=== PATIENT | male | born 1975 | race Two or more races ===

== ENCOUNTER 2022-12-01 02:23 | Inpatient (IN) | payer OTHER, SELFPAY ==
--- NOTE | ~2022-12-01 | XR_ITS ---
EXAMINATION: XR CHEST CLINICAL INFORMATION: Trauma. COMPARISON: None available. TECHNIQUE: 2 views of the chest were obtained. FINDINGS: The cardiomediastinal silhouette is normal. There is no focal lung consolidation or pleural effusion. The bony structures and soft tissues are unremarkable. XR/XR chest 2V IMPRESSION: No active cardiopulmonary disease.
[2022-12-01 02:26] VITALS: BP 127/87; PULSE 92; RESP 18; TEMP 37.1; O2SAT 99; BMI 25.1
[2022-12-01 02:46] LABS: MANUAL DIFF FLAG NO
--- OUTSIDE RECORDS SUMMARY | 2022-12-01 02:46 | XMS_ITS | Continuity of Care Document ---
Author Name Unknown Organization [facility] ter Address [address] [place] [id number]- Care Team Providers Care Vein Pumper Name Role Phone Neva Sesay Primary Care Physician [place] [facility] [place]/03/21 - 06/11/[address] [address] Attending Physician: Alexsander Feldman MD Admitting Physician: Alexsander Feldman MD Allergies, Adverse Reactions, Alerts No Known Allergies Medications klonopin klonopin, Refills 0, Maintenance, 09/30/19 7:59:00 EDT, Supply Start Date: 09/30/19 Status: Ordered Methadone By Mouth, 0 Refills, Maintenance, 05/14/18 10:04:23 EST Start Date: 05/14/18 Status: Ordered MiraLax oral powder for reconstitution = 17 Gm, By Mouth, Daily, dissolve in water before taking, # 255 Gm, 1 Refills, Acute 03/02/22 9:58:00 EST, 03/01/21 9:58:00 EST, REC Powder, [facility] [address], Partial fill upon patient request if the prescription is for a schedule II opioi... Start Date: 03/01/21 Stop Date: 03/02/22 Status: Ordered NuLYTELY with Flavor Packs oral powder for reconstitution 240 mL, By Mouth, Every 10 minutes, # 4,000 mL, 0 Refills, Maintenance, 03/01/21 9:58:00 EST, REC Powder, [facility], Can offer alternative bowel prep if not available, 240 mL By Mouth Every 10 minutes, 167.64, cm, 03/01/21 9:10:00 ES... Start Date: 03/01/21 Status: Ordered Trulicity Pen Subcutaneous Infusion, 0 Refills, Maintenance, 01/01/21 12:47:00 EDT, Partial fill upon patient request if the prescription is for a schedule II opioid drug. Start Date: 01/01/21 Status: Ordered Wellbutrin By Mouth, 0 Refills, Maintenance, 09/30/19 7:59:00 EDT Start Date: 09/30/19 Status: Ordered Zolpidem Daily at bedtime, 0 Refills, Maintenance, 09/30/19 7:59:00 EDT Start Date: 09/30/19 Status: Ordered Problem List Condition Effective Dates Status Health Status Inform ant Acquired trigger finger of r ight middle finger(Confirmed) Active Central sleep apnea(Confirmed) Active Hypoventilation(Confirmed) Active Obese class I(Confirmed) Active Obstructive sleep apnea(Confirmed) Active Social History Social History Type Response Smoking Status Former smoker, quit more than 30 days ago entered on: 05/14/18 Sex
--- OUTSIDE RECORDS SUMMARY | 2022-12-01 02:46 | XMS_ITS | Continuity of Care Document ---
Author Name Unknown Organization [facility] Address [address] [facility], [address]r d Floor, [address] [place] [id number]- Care Team Providers Care Chute Loader Name Role Phone Neva Sesay Primary Care Physician [phone] Encounter [facility] [place] Date(s): 12/17/19 - 01/16/20 [facility] [address] [facility], 3rd Floor, [address] [place] [address]- [facility] Attending Physician: Saravanan Costa Admitting Physician: Admtr, Ar8 Referring Physician: Admtr, Ar8 Allergies, Adverse Reactions, Alerts Substance Reaction Severity Status NKA Active Medications acetaminophen-oxycodone 500 mg-5 mg oral capsule 1 capsule, By Mouth, Every 6 hours, PRN as needed for pain, # 18 capsule, 0 Refills, Maintenance Start Date: 12/07/09 Status: Ordered Crutches 1 pair, # 1 pair, Maintenance, 03/24/10 15:12:31 Start Date: 03/24/10 Status: Ordered Durable Medical Equipment See Instructions, Maintenance, iVAPS with TVa of 8 L/minute with EPAP of 6 and min PS of 4 and max PS of 20 with target patient rate at 16 bpm, 06/07/18 10:35:09 EST, Compound Start Date: 06/07/18 Status: Ordered Flonase 50 mcg/inh nasal spray 1 sprays, Nares, Both, 2 times a day, PRN Nasal Congestion, # 16 Gm, 3 Refills, Maintenance, 10/09/18 18:08:15 EDT, [place], 1 sprays Nares, Both 2 times a day,PRN:Nasal Congestion Start Date: 10/09/18 Status: Ordered klonopin klonopin, Refills 0, Maintenance, 09/30/19 7:59:00 EDT, Supply Start Date: 09/30/19 Status: Ordered Methadone By Mouth, 0 Refills, Maintenance, 05/14/18 10:04:23 EST Start Date: 05/14/18 Status: Ordered Misc Rx Refills 0, Maintenance, 09/30/19 7:59:00 EDT, Supply Start Date: 09/30/19 Status: Ordered oxycodone 5 mg oral tablet 1 tablet = 5 mg, By Mouth, Every 6 hours, PRN for pain, # 10 tablet, 0 Refills, Maintenance, Tablet Start Date: 03/24/10 Status: Ordered oxycodone 5 mg oral tablet 2 tablet = 10 mg, By Mouth, Every 6 hours, PRN Pain, # 24 tablet, 0 Refills, Maintenance, Tablet Start Date: 09/24/09 Status: Ordered Percocet-5/325 325 mg-5 mg oral tablet 1 tablet, By Mouth, Every 4 hours, PRN for pain, # 8 tablet, 0 Refills, Maintenance, Tablet Start Date: 03/24/10 Status: Ordered tylenol tylenol, Refills 0, Maintenance, 09/30/19 8:00:00 EDT, Supply Start Date: 09/30/19 Status: Ordered Wellbutrin By Mouth, 0 Refills, Maintenance, 09/30/19 7:59:00 EDT Start Date: 09/30/19 Status: Ordered Zolpidem Daily at bedtime, 0 Refills, Maintenance, 09/30/19 7:59:00 EDT Start Date: 09/30/19 Status: Ordered Problem List Condition Effective Dates Status Health Status Inform ant Central sleep apnea(Confirmed) Active Hypoventilation(Confirmed) Active Obstructive sleep apnea(Confirmed) Active Social History Social History Type Response Smoking Status Former smoker, quit more than 30 days ago entered on: 05/14/18 Sex
--- OUTSIDE RECORDS SUMMARY | 2022-12-01 02:46 | XMS_ITS | Continuity of Care Document ---
Author Name Unknown Organization [facility] Address [address] [place] [address], 3r d Floor, [address] [place] [address]- Care Team Providers Care Ward Clerk Name Role Phone Neva Sesay Primary Care Physician [phone] Encounter [facility] [place] Date(s): 06/27/19 - 07/04/19 [facility] [address] [facility], 3rd Floor, [address] [place] [address]- [facility] Attending Physician: Zan Peoples Admitting Physician: Zan Peoples Referring Physician: Neva Sesay Allergies, Adverse Reactions, Alerts Substance Reaction Severity [...] Gm, 3 Refills, Maintenance, 10/09/18 18:08:15 EDT, [place], 1 sprays Nares, Both 2 times a day,PRN:Nasal Congestion Start Date: 10/09/18 Status: Ordered Methadone By Mouth, 0 Refills, Maintenance, 05/14/18 10:04:23 EST Start Date: 05/14/18 Status: Ordered oxycodone 5 mg oral tablet [...] Maintenance, Tablet Start Date: 03/24/10 Status: Ordered Problem List Condition Effective Dates Status Health Status Inform ant Central sleep apnea(Confirmed) Active Hypoventilation(Confirmed) Active Obstructive sleep apnea(Confirmed) Active Social History Social History Type Response Smoking Status Former smoker, quit more than 30 days ago entered on: 05/14/18 Sex
--- OUTSIDE RECORDS SUMMARY | 2022-12-01 02:46 | XMS_ITS | Continuity of Care Document ---
Author Name Unknown Organization [facility] ter Address [address] [place] [address]- Care Team Providers Care Medical Data Entry Clerk Name Role Phone Neva Sesay Primary Care Physician Encounter [facility] [place] Date(s): 10/29/19 - 12/04/[address] [address] Attending Physician: Zan Peoples Admitting Physician: Zan Peoples Referring Physician: Zan Peoples Allergies, Adverse Reactions, Alerts Substance Reaction Severity [...] Gm, 3 Refills, Maintenance, 10/09/18 18:08:15 EDT, [place], 1 sprays Nares, Both 2 times a [...]
--- OUTSIDE RECORDS SUMMARY | 2022-12-01 02:46 | XMS_ITS | Continuity of Care Document ---
Author Name Unknown Organization [facility] Address [address] [place] [address]- Care Team Providers Care Obstetrical Tech Name Role Phone Neva Sesay Primary Care Physician [id number] Date(s): 06/18/19 - 06/28/19 [facility] [address] [place] [address]- [facility] Attending Physician: Admtr, Ar8 Admitting Physician: Admtr, Ar8 Referring Physician: Admtr, [...] Gm, 3 Refills, Maintenance, 10/09/18 18:08:15 EDT, [place], 1 sprays Nares, Both 2 times a [...]
--- OUTSIDE RECORDS SUMMARY | 2022-12-01 02:46 | XMS_ITS | Continuity of Care Document ---
Author Name Unknown Organization [facility] Address [address] [place] [address]- Care Team Providers Care Mechanical Oxidizer Name Role Phone Neva Sesay Primary Care Physician [phone] Encounter [facility] [place] Date(s): 03/20/19 - 07/18/19 [facility] [address] [place] [id number]- [facility] Attending Physician: Luisa See NP Admitting Physician: Luisa See NP Allergies, Adverse Reactions, Alerts Substance Reaction Severity [...] Gm, 3 Refills, Maintenance, 10/09/18 18:08:15 EDT, [place], 1 sprays Nares, Both 2 times a [...]
--- OUTSIDE RECORDS SUMMARY | 2022-12-01 02:47 | XMS_ITS | Continuity of Care Document ---
Author Name Unknown Organization [facility] ter Address [address] [place] [id number]- Care Team Providers Care Load Mixer Name Role Phone Neva Sesay Primary Care Physician Encounter [facility] [place] Date(s): 08/17/21 - 08/17/[address] [address]- Discharge Disposition: A-D/C Home Attending Physician: Arnoldo Medina MD Admitting Physician: Arnoldo Medina MD Referring Physician: Not on Staff, Referring MD Allergies, Adverse Reactions, Alerts No Known Allergies Medications ibuprofen 600 mg oral tablet 600 mg, 1, tablet, By Mouth, Every 6 hours, PRN, not to exceed 3200 mg/day with food or milk, # 40 tablet, Refills 0, Tot. Refills 0, Maintenance, for pain, 08/17/21 14:25:00 EDT, Route to Pharmacy Electronically, [id number], Partial fill... Start Date: 08/17/21 Stop Date: 08/27/21 Status: Ordered klonopin klonopin, Refills 0, Maintenance, 09/30/19 7:59:00 EDT, Supply Start Date: 09/30/19 Status: Ordered Methadone By Mouth, 0 Refills, Maintenance, 05/14/18 10:04:23 EST Start Date: 05/14/18 Status: Ordered MiraLax oral powder for reconstitution = 17 Gm, By Mouth, Daily, dissolve in water before taking, # 255 Gm, 1 Refills, Acute 03/02/22 9:58:00 EST, 03/01/21 9:58:00 EST, REC Powder, [facility] [address], Partial fill upon patient request if the prescription is for a schedule II opioi... Start Date: 03/01/21 Stop Date: 03/02/22 Status: Ordered NuLYTELY with Flavor Packs oral powder for reconstitution 240 mL, By Mouth, Every 10 minutes, # 4,000 mL, 0 Refills, Maintenance, 03/01/21 9:58:00 EST, REC Powder, [facility], Can offer alternative bowel prep if not available, 240 mL By Mouth Every 10 minutes, 167.64, cm, 03/01/21 9:10:00 ES... Start Date: 03/01/21 Status: Ordered Trulicity Pen Subcutaneous Infusion, 0 Refills, Maintenance, 01/01/21 12:47:00 EDT, Partial fill upon patient request if the prescription is for a schedule II opioid drug. Start Date: 01/01/21 Status: Ordered Tylenol 325 mg oral capsule 2 capsule = 650 mg, By Mouth, Every 6 hours, PRN as needed for pain, not to exceed 4000 mg/day, # 20 capsule, 0 Refills, Maintenance, 08/17/21 14:25:00 EDT, Capsule, [id number], Partial fill upon patient request if the prescription is for a... Start Date: 08/17/21 Status: Ordered Wellbutrin By Mouth, 0 Refills, [...] class I(Confirmed) Active Obstructive sleep apnea(Confirmed) Active Vital Signs Most recent to oldest [Reference Range]: 1 2 3 Height 168 cm (08/17/21 2:07 PM) 168 cm (08/17/21 11:28 AM) 168 cm (08/17/21 10:05 AM) Weight 86 kg (08/17/21 2:07 PM) 86 kg (08/17/21 11:28 AM) 86 kg (08/17/21 10:05 AM) Oxygen Saturation [94-100 %] 96 % (08/17/21 2:07 PM) 99 % (08/17/21 10:05 AM) 99 % (08/17/21 9:41 AM) Pulse Rate [55-90 bpm] 75 bpm (08/17/21 2:07 PM) 70 bpm (08/17/21 10:05 AM) 86 bpm (08/17/21 9:41 AM) Body Mass Index [18.5-24.99] 30.47 *>HHI* (08/17/21 2:07 PM) 30.47 *>HHI* (08/17/21 10:05 AM) Blood Pressure [90-138/55-84 mm Hg] 106/63mm Hg (08/17/21 2:07 PM) 123/87mm Hg (08/17/21 10:05 AM) Respiratory Rate [16-30 br/min] 18 br/min (08/17/21 2:07 PM) 16 br/min (08/17/21 10:05 AM) Temperature [96.8-100.4 DegF] 97.5 DegF (08/17/21 2:07 PM) 98.7 DegF (08/17/21 10:05 AM) Mode of Delivery (Oxygen) Room air (08/17/21 2:07 PM) Room air (08/17/21 10:05 AM) Room air (08/17/21 9:41 AM) Blood pressure sites Arm, right (08/17/21 2:07 PM) Arm, right (08/17/21 10:05 AM) Temperature Route Oral (08/17/21 2:07 PM) Oral (08/17/21 10:05 AM) Dry Weight 86 kg (08/17/21 2:07 PM) 86 kg (08/17/21 11:28 AM) 86 kg (08/17/21 10:05 AM) Weight Obtained Via Patient/family state d (08/17/21 10:05 AM) Dry Weight Obtained Via Patient/family s tated (08/17/21 10:05 AM) Social History Social History Type Response Smoking Status Former smoker, quit more than 30 days ago entered on: 05/14/18 Sex
--- OUTSIDE RECORDS SUMMARY | 2022-12-01 02:47 | XMS_ITS | Continuity of Care Document ---
Author Name Unknown Organization [facility] Address [address] [place] [id number]- Care Team Providers Care Ranch Hand Name Role Phone Neva Sesay Primary Care Physician [place] [facility] [place] 03[place]/21 [facility] [address] [place] [address]- Attending Physician: Saravanan Costa Admitting Physician: Saravanan Costa Referring Physician: Saravanan Costa Allergies, Adverse Reactions, Alerts Substance Reaction Severity Status NKA Active Medications klonopin klonopin, Refills 0, Maintenance, 09/30/19 7:59:00 EDT, Supply Start Date: 09/30/19 Status: Ordered Methadone By Mouth, 0 Refills, Maintenance, 05/14/18 10:04:23 EST Start Date: 05/14/18 Status: Ordered MiraLax oral powder for reconstitution = 17 Gm, By Mouth, Daily, dissolve in water before taking, # 255 Gm, 1 Refills, Acute 03/02/22 9:58:00 EST, 03/01/21 9:58:00 EST, REC Powder, [facility] [address], Partial fill upon patient request if the prescription is for a schedule II opioi... Start Date: 03/01/21 Stop Date: 03/02/22 Status: Ordered NuLYTELY with Flavor Packs oral powder for reconstitution 240 mL, By Mouth, Every 10 minutes, # 4,000 mL, 0 Refills, Maintenance, 03/01/21 9:58:00 EST, REC Powder, [facility], Can offer alternative bowel prep [...]
[2022-12-01 02:49] LABS: Basophils Percent Auto 0.3 % (0-2); Eosinophils Percent Auto 0.2 % (0-4); Hematocrit 39.6 % (42.0-52.0); Hemoglobin 13.6 g/dl (14.0-18.0); Imm Gran Abs Auto 0.02 X10*3/uL (0.00-0.03); Imm Gran Pct Auto 0.3 % (0.0-0.4); Lymphocytes Absolute Auto 2.1 X10*3/uL (1.2-4.9); Lymphocytes Percent Auto 32.3 % (20-40); Mean Corpuscular HGB Conc 34.3 g/dl (31.0-36.0); Mean Corpuscular Hemoglobin 31.2 pg (27.0-33.0); Mean Corpuscular Volume 90.8 fL (80.0-98.0); Mean Platelet Volume 9.8 fL (9.4-12.4); Neutrophils Absolute Auto 3.3 x10*3/uL (2.0-8.3); Neutrophils Percent Auto 51.9 % (45-73); Platelet Count 257 X10*3/uL (160-400); Red Blood Count 4.36 X10*6/uL (4.60-5.80); Red Cell Distribution Width 12.4 % (11.0-16.0); White Blood Count 6.4 X10*3/uL (4.8-10.8)
[2022-12-01 03:04] LABS: Ethanol < 10 mg/dL
[2022-12-01 03:05] LABS: Alanine Aminotransferase 85 U/L (0-40); Albumin Level 3.9 g/dL (3.5-5.0); Alkaline Phosphatase 172 U/L (39-117); Anion Gap 16 (12-20); Aspartate Amino Transferase 83 U/L (5-37); Bilirubin Total 0.5 mg/dL (0.0-1.0); Blood Urea Nitrogen 24 mg/dL (9-16); Calcium 9.8 mg/dL (8.4-10.2); Carbon Dioxide 22 mmol/L (22-29); Chloride 105 mmol/L (96-108); Creatinine Clr Calc Pharmacy 75.6; Estimated Glomerular Filt Rate > 60; Glucose Random 107 mg/dL (60-115); Potassium 4.5 mmol/L (3.3-5.1); Sodium 138 mmol/L (135-145); Total Protein 7.9 g/dL (6.5-8.0)
[2022-12-01 03:24] LABS: Appearance Urine Clear; Color Urine Dark Yellow; Glucose Urine UA Negative (Negative); Leukocyte Esterase Urine Negative (Negative); Nitrite Urine Negative (Negative); Specific Gravity - Urine >= 1.030 (1.005-1.025); UMIC TRIGGER UA YES; Urine Blood Negative (Negative); Urine Ketones Trace mg/dL (Negative); Urine Protein 30 (1+) mg/dL (Neg-Trace)
[2022-12-01 03:32] LABS: Amphetamine Screen Urine Not Detected (Not Detect); Barbiturates, Urine Not Detected (Not Detect); Benzodiazepines Screen Urine Not Detected (Not Detect); Cannabinoid Screen Urine Not Detected (Not Detect); Cocaine Screen Urine POSITIVE (Not Detect); Fentanyl, urine POSITIVE (Not Detect); Opiate Screen Urine POSITIVE (Not Detect); Phencyclidine Screen Urine Not Detected (Not Detect)
--- NOTE | 2022-12-01 03:38 | ED.PSYCH ---
HPI - Psych General Chief Complaint: Psychiatric Symptoms Stated Complaint: Si thoughts? Time Seen by Provider: 12/01/22 03:18 Source: patient Mode of arrival: ambulatory Limitations: no limitations History of Present Illness HPI Narrative: Patient with history of depression substance abuse use heroin and cocaine right hand carpal tunnel syndrome comes in for increased depression and suicidal ideation. Patient lost his job 3 weeks ago because is pain in the right hand still using heroin and cocaine about 25 dollars a day unable to manage financially lives with his parents feel suicidal by overdosing with drugs, does have psychiatrist and therapist in takes his medication for depression denies alcohol use Related Data Home Medications Medication Instructions Recorded Confirmed bupropion HCl 150 mg 24 hr tablet, 150 mg PO QAM 12/01/22 12/01/22 extended release clonazepam 1 mg tablet 1 mg PO TID 12/01/22 12/01/22 dulaglutide 3 mg/0.5 mL 3 mg subcut QWEEK 12/01/22 12/01/22 subcutaneous pen injector (Trulicity) zolpidem 10 mg tablet 10 mg PO BEDTIME insomnia 12/01/22 12/01/22 Allergies Allergy/AdvReac Type Severity Reaction Status Date / Time No Known Allergies Allergy Verified 12/01/22 02:26 Review of Systems Review of Systems: Yes all other systems are reviewed and are negative PMFSH Social History Social History Advance Directives: No Advance Directives Information Provided: No Physical Exam Vital Signs: Vital Signs: Last Vital Signs Temp 98.7 F 12/01/22 02:26 Pulse 92 12/01/22 02:26 Resp 18 12/01/22 02:26 BP 127/87 12/01/22 02:26 Pulse Ox 99 12/01/22 02:26 O2 Del Method Room Air 12/01/22 02:26 BMI result Body Mass Index 25.1 Appearance: Alert. Oriented X3. No acute distress. Eyes: PERRLA, No Nystagmus ENT: Pharynx normal. Oral Mucosa moist Neck: Normal inspection. Neck supple. CVS: Normal heart rate and rhythm. Pulses normal. Respiratory: No respiratory distress. Equal air entry bilateral, no wheezing/rales/rhonchi Abdomen: Soft and nontender. Bowel sounds are present, no mass palpable, no CVA tenderness Skin: Skin warm and dry. Normal skin color. Normal skin turgor. Extremities: No lower extremity edema. No calf tenderness right hand Tinel sign positive psych: Feel depressed no suicidal ideation at this time no hallucination or delusion Neuro: Oriented X 3. No motor deficit. No sensory deficit.No cerebellar signs , cranial nerves II-XII intact Medical Decision Making Medical Decision Making [facility] Narrative: Patient with polysubstance abuse with depression and SI will get care team involved for evaluation, medically cleared Differential Diagnosis Differential Diagnoses: The differential diagnosis associated with the presentation includes Major depression/substance abuse/mood disorder Lab Data [facility] Lab Attestation statement: I reviewed the patient's lab results. 12/01/22 02:42 12/01/22 02:42 Labs: Lab Results 12/01/22 12/01/22 12/01/22 Range/Units 02:42 02:42 02:42 WBC 6.4 (4.8-10.8) X10*3/uL RBC 4.36 L (4.60-5.80) X10*6/uL Hgb 13.6 L (14.0-18.0) g/dl Hct 39.6 L (42.0-52.0) % MCV 90.8 (80.0-98.0) fL MCH 31.2 (27.0-33.0) pg MCHC 34.3 (31.0-36.0) g/dl RDW 12.4 (11.0-16.0) % Plt Count 257 (160-400) X10*3/uL MPV 9.8 (9.4-12.4) fL Immature Gran % (Auto) 0.3 (0.0-0.4) % Neut % (Auto) 51.9 (45-73) % Lymph % (Auto) 32.3 (20-40) % [place] % (Auto) 15.0 H (2-11) % Eos % (Auto) 0.2 (0-4) % Baso % (Auto) 0.3 (0-2) % Lymph # (Auto) 2.1 (1.2-4.9) X10*3/uL [place] # (Auto) 1.0 (0.1-1.2) X10*3/uL Eos # (Auto) 0.0 (0.0-0.4) X10*3/uL Baso # (Auto) 0.0 (0.0-0.2) X10*3/uL Abs Immat Gran (auto) 0.02 (0.00-0.03) X10*3/uL Absolute Neuts (auto) 3.3 (2.0-8.3) x10*3/uL Absolute Nucleated RBC 0.000 (0.0-0.012) X10*3/uL Nucleated RBC % (auto) 0.0 (0.0-0.2) /100WBC Sodium 138 (135-145) mmol/L Potassium 4.5 (3.3-5.1) mmol/L Chloride 105 (96-108) mmol/L Carbon Dioxide 22 (22-29) mmol/L Anion Gap 16 (12-20) BUN 24 H (9-16) mg/dL Creatinine 1.14 (0.5-1.4) mg/dL Estim Creat Clear Calc 75.6 Estimated GFR > 60 Random Glucose 107 (60-115) mg/dL Calcium 9.8 (8.4-10.2) mg/dL Total Bilirubin 0.5 (0.0-1.0) mg/dL AST 83 H (5-37) U/L ALT 85 H (0-40) U/L Alkaline Phosphatase 172 H (39-117) U/L Total Protein 7.9 (6.5-8.0) g/dL Albumin 3.9 (3.5-5.0) g/dL Urine Color Urine Appearance Urine pH (5.0-9.0) Ur Specific [place] (1.005-1.025) Urine Protein (Neg-Trace) mg/dL Urine Glucose (UA) (Negative) mg/dL Urine Ketones (Negative) mg/dL Urine Blood (Negative) Urine Nitrite (Negative) Ur Leukocyte Esterase (Negative) Urine RBC (0-2) /HPF Urine WBC (0-5) /HPF Ur Squamous Epith Cells (0-2) /HPF Urine Bacteria (None Seen) Hyaline Casts (0-2) /LPF Urine Opiates Screen (Not Detect) Urine Fentanyl Screen (Not Detect) Ur Barbiturates Screen (Not Detect) Ur Phencyclidine Scrn (Not Detect) Ur Amphetamines Screen (Not Detect) U Benzodiazepines Scrn (Not Detect) Urine Cocaine Screen (Not Detect) U Marijuana (THC) Screen (Not Detect) Ethyl Alcohol < 10 mg/dL COVID-19 ([facility]) (Negative) COVID-19 Clin Com 12/01/22 12/01/22 12/01/22 Range/Units 03:01 03:01 03:01 WBC (4.8-10.8) X10*3/uL RBC (4.60-5.80) X10*6/uL Hgb (14.0-18.0) g/dl Hct (42.0-52.0) % MCV (80.0-98.0) fL MCH (27.0-33.0) pg MCHC (31.0-36.0) g/dl RDW (11.0-16.0) % Plt Count (160-400) X10*3/uL MPV (9.4-12.4) fL Immature Gran % (Auto) (0.0-0.4) % Neut % (Auto) (45-73) % Lymph % (Auto) (20-40) % [place] % (Auto) (2-11) % Eos % (Auto) (0-4) % Baso % (Auto) (0-2) % Lymph # (Auto) (1.2-4.9) X10*3/uL [place] # (Auto) (0.1-1.2) X10*3/uL Eos # (Auto) (0.0-0.4) X10*3/uL Baso # (Auto) (0.0-0.2) X10*3/uL Abs Immat Gran (auto) (0.00-0.03) X10*3/uL Absolute Neuts (auto) (2.0-8.3) x10*3/uL Absolute Nucleated RBC (0.0-0.012) X10*3/uL Nucleated RBC % (auto) (0.0-0.2) /100WBC Sodium (135-145) mmol/L Potassium (3.3-5.1) mmol/L Chloride (96-108) mmol/L Carbon Dioxide (22-29) mmol/L Anion Gap (12-20) BUN (9-16) mg/dL Creatinine (0.5-1.4) mg/dL Estim Creat Clear Calc Estimated GFR Random Glucose (60-115) mg/dL Calcium (8.4-10.2) mg/dL Total Bilirubin (0.0-1.0) mg/dL AST (5-37) U/L ALT (0-40) U/L Alkaline Phosphatase (39-117) U/L Total Protein (6.5-8.0) g/dL Albumin (3.5-5.0) g/dL Urine Color Dark Yellow Urine Appearance Clear Urine pH 5.0 (5.0-9.0) Ur Specific [place] >= 1.030 H (1.005-1.025) Urine Protein 30 (1+) H (Neg-Trace) mg/dL Urine Glucose (UA) Negative (Negative) mg/dL Urine Ketones Trace (Negative) mg/dL Urine Blood Negative (Negative) Urine Nitrite Negative (Negative) Ur Leukocyte Esterase Negative (Negative) Urine RBC 3-5 H (0-2) /HPF Urine WBC 0-5 (0-5) /HPF Ur Squamous Epith Cells 3-5 (0-2) /HPF Urine Bacteria None Seen (None Seen) Hyaline Casts 6-10 (0-2) /LPF Urine Opiates Screen POSITIVE H (Not Detect) Urine Fentanyl Screen POSITIVE H (Not Detect) Ur Barbiturates Screen Not Detected (Not Detect) Ur Phencyclidine Scrn Not Detected (Not Detect) Ur Amphetamines Screen Not Detected (Not Detect) U Benzodiazepines Scrn Not Detected (Not Detect) Urine Cocaine Screen POSITIVE H (Not Detect) U Marijuana (THC) Screen Not Detected (Not Detect) Ethyl Alcohol mg/dL COVID-19 ([facility]) Negative (Negative) COVID-19 Clin Com See Note Discharge Plan Discharge Clinical Impression: Depression, Suicidal ideation, Polysubstance abuse Patient Disposition: Still a Patient Prescriptions: No Action clonazepam 1 mg tablet 1 mg PO TID zolpidem 10 mg tablet 10 mg PO BEDTIME bupropion HCl 150 mg tablet extended release 24 hr 150 mg PO QAM Trulicity 3 mg/0.5 mL pen injector 3 mg subcut QWEEK Interventions: [place]-Suicide Risk Severity Scale Last Done: 12/01/22 02:52
[2022-12-01 03:40] LABS: Bacteria Urine None Seen (None Seen); WBC Urine 0-5 /HPF (0-5)
[2022-12-01 03:58] LABS: COVID-19 Test Negative (Negative); IDNOW Serial# 08D9AD1C
--- NOTE | 2022-12-01 06:02 | PC.NURSE ---
Patient slept through the night, no distress observed/reported, behavior non concerning, med rec completed/pending provider's approval, labs completed/resulted, care consult ordered/pending evaluation, VSS, will continue to monitor.
[2022-12-01] MEDS: clonazePAM 1 MG TABLET PO ×3 (08:36→20:45)
[2022-12-01] MEDS: buPROPion HCl XL 150 MG TAB.ER.24H PO (08:36)
--- NOTE | 2022-12-01 11:12 | ECG_ITS ---
Test Reason : ESPARZA + COCAINE Blood Pressure : / mmHG Vent. Rate : 056 BPM Atrial Rate : 056 BPM P-R Int : 158 ms QRS Dur : 084 ms QT Int : 424 ms P-R-T Axes : 015 045 048 degrees QTc Int : 409 ms Sinus bradycardia Otherwise normal ECG No previous ECGs available Referred By: Dylon Acosta Electronically Signed By:LONNIE PUCKETT
--- NOTE | 2022-12-01 13:07 | PC.NURSE ---
pt slept most of morning, met with admissions to sign CV. EKG pending
[2022-12-01 13:41] VITALS: BP 119/80; PULSE 66; RESP 16; TEMP 36; O2SAT 99
[2022-12-01 17:47] VITALS: BMI 24.2
[2022-12-01 17:50] VITALS: BP 112/79; PULSE 68; RESP 16; TEMP 36.7; O2SAT 98
[2022-12-01 18:00] VITALS: BP 119/80; PULSE 68; PULSE 81; RESP 16; TEMP 36.3; O2SAT 99
--- NOTE | 2022-12-01 19:02 | PC.ADMIT ---
Martin is a 47 y/o partnered male, who is [place] speaking, but understands some [place] Islander. Patient transferred to unit via w/c from ER POD today at 1740 with out issues. Per Care Team referral, Patient was admitted to ER after failed suicide attempt via overdose. Patient reported had experiencing worsening depression and anxiety, SI,HI, and substance use. Patient has h/o of substance use and EMILY with no prior attempts before yesterday's. Patient has not been medication adherent. Patient reports intense thoughts of hurting others, stating that he has had thoughts of setting the house on fire. Patient cooperated with admission process and wan support specialist present. Patient alert 0x4, dressed appropriately with good eye contact. Patient's belongings brought up from Unit, except for box knife and pepper spray, which was locked in safe by security. Martin signed a CV and was placed on 15 minute checks for safety. He reported he has DM, which he was using Trulicity Sub q weekly. per Patient last used on 11/22/22. Patient has been in physical control since coming to ER. No behavior issues or restraints . Per patient, been incarcerated x7 times for car theft, but no current charges. Patient eating well, but reported tooth pain left lower rear tooth has cavity. otherwise, teeth are good with no dentures. Patient reports he has CPap at home for his sleep apnea. He has no SoB or apparent respiratory problems. He declined nicotine replacement, but reports he is former smoker. Patient's skin is warm. Patient cooperated with skin check. He is able to compete all his ADL's independently and ambulates ad rosibel with a steady gait. Per patient, I use a cane at home, but can walk with out it. Per patient, I used 25.00 of cocaine and heroin per day prior to coming here. Patient reported mild anxiety of 2/10 and depression of 2/10 at this time denies SI/HI/AV/VH. Dr Fernández aware of patient status and admission orders obtained. Patient orientated to unit and unit routines by staff and voiced no concerns.
[2022-12-01] MEDS: Zolpidem Tartrate 5 MG TABLET PO (20:46)
[2022-12-01] MEDS: Acetaminophen 325 MG TABLET 650 MG PO (20:50)
[2022-12-02 08:00] VITALS: PULSE 77
[2022-12-02 08:15] VITALS: BP 103/69; PULSE 77; RESP 18; TEMP 36.6; O2SAT 97
[2022-12-02] MEDS: buPROPion HCl XL 150 MG TAB.ER.24H PO (09:01)
[2022-12-02] MEDS: clonazePAM 1 MG TABLET PO (09:01)
[2022-12-02] MEDS: Nicotine Polacrilex 2 MG GUM 4 MG BUCCAL (09:03)
[2022-12-02 09:18] LABS: Estimated Average Glucose 117 mg/dL; Hemoglobin A1c % 5.7 % (<6.0)
[2022-12-02] MEDS: Nicotine 21 MG PATCH.TD24 TRANSDERMA (09:22)
[2022-12-02 10:36] LABS: Alanine Aminotransferase 114 U/L (0-40); Albumin Level 3.9 g/dL (3.5-5.0); Alkaline Phosphatase 184 U/L (39-117); Anion Gap 16 (12-20); Aspartate Amino Transferase 147 U/L (5-37); Bilirubin Total 0.6 mg/dL (0.0-1.0); Blood Urea Nitrogen 19 mg/dL (9-16); Calcium 10.2 mg/dL (8.4-10.2); Carbon Dioxide 24 mmol/L (22-29); Chloride 103 mmol/L (96-108); Cholesterol 178 mg/dL (<200); Creatinine Clr Calc Pharmacy 109.2; Estimated Glomerular Filt Rate > 60; Glucose Fasting 82 mg/dL (60-99); HDL Cholesterol 68 mg/dL (>40); LDL Cholesterol Calculated 99 mg/dL (<100); Potassium 5.3 mmol/L (3.3-5.1); Sodium 138 mmol/L (135-145); Total Protein 7.9 g/dL (6.5-8.0); Triglycerides 59 mg/dL (<150)
[2022-12-02 10:44] LABS: Thyroid Stimulating Hormone 0.32 uIU/mL (0.32-4.0)
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
[2022-12-02 11:01] LABS: Folate 13.5 ng/mL (> or = 4.0); Vitamin B12 612 pg/mL (200-900)
== END 2022-12-02 11:45 | disposition home or self-care (01) | DRG 754 ==
LOC: HO.ED 04:20 → HO.PADLT16 17:14
PROVIDERS: Admitting Provider Psychiatry & Neurology Psychiatry; Emergency Provider Internal Medicine; PCP Physician Assistant; Visit Provider Psychiatry & Neurology Psychiatry
DX: F32.A Depression, unspecified (principal); E11.9 Type 2 diabetes mellitus without complications; Z76.5 Malingerer [conscious simulation]; F12.10 Cannabis abuse, uncomplicated; F17.290 Nicotine dependence, other tobacco product, uncomplicated; Z71.6 Tobacco abuse counseling; Z62.810 Personal history of physical and sexual abuse in childhood; F14.10 Cocaine abuse, uncomplicated; F19.10 Other psychoactive substance abuse, uncomplicated; Z20.822 Contact with and (suspected) exposure to COVID-19; Z79.85 Long-term (current) use of injectable non-insulin antidiabetic drugs; Z87.891 Personal history of nicotine dependence
CPT/HCPCS: 36415; 71046; 80053; 80061; 80307; 81001; 82607; 82746; 83036; 84439; 84443; 85025; 87635; 93005; 99285; S9485

== ENCOUNTER → 2022-12-01 17:07 | Outpatient (BNV) | payer OTHER, SELFPAY | PROVIDERS: Admitting Provider Psychiatry & Neurology Psychiatry; Emergency Provider Internal Medicine; PCP Physician Assistant; Visit Provider Psychiatry & Neurology Psychiatry | DX: F11.90 Opioid use, unspecified, uncomplicated (principal); F14.10 Cocaine abuse, uncomplicated; F17.200 Nicotine dependence, unspecified, uncomplicated; F12.90 Cannabis use, unspecified, uncomplicated; Z76.5 Malingerer [conscious simulation] | CPT/HCPCS: 99233 ==

== ENCOUNTER 2023-02-07 10:58 | Emergency (ER) | payer MEDICAID, SELFPAY ==
--- NOTE | ~2023-02-07 | XR_ITS ---
EXAMINATION: XR ANKLE, RIGHT XR FOOT, RIGHT CLINICAL INFORMATION: Right ankle and foot pain. COMPARISON: None TECHNIQUE: AP, lateral, and mortise views of the right ankle and AP, lateral, and oblique views of the right foot. FINDINGS: RIGHT ANKLE: No fracture. Alignment is anatomic. Ankle mortise is symmetric. Joint spaces are maintained. No ankle joint effusion. Mild soft tissue swelling at the ankle and hindfoot. RIGHT FOOT: No fracture. Bipartite os peroneum. Alignment is anatomic. No erosions. Joint spaces are maintained. Small enthesopathic spur is present at the plantar fascial origin on the calcaneus. Mild soft tissue swelling in the hindfoot medially. XR/XR ankle RT min 3V IMPRESSION: 1. No acute fracture or malalignment in the right ankle and foot. 2. Mild soft tissue swelling at the ankle and hindfoot.
--- NOTE | ~2023-02-07 | XR_ITS ---
EXAMINATION: XR ANKLE, RIGHT XR FOOT, RIGHT CLINICAL INFORMATION: Right ankle and foot pain. COMPARISON: None TECHNIQUE: AP, lateral, and mortise views of the right ankle and AP, lateral, and oblique views of the right foot. FINDINGS: RIGHT ANKLE: No fracture. Alignment is anatomic. Ankle mortise is symmetric. Joint spaces are maintained. No ankle joint effusion. Mild soft tissue swelling at the ankle and hindfoot. RIGHT FOOT: No fracture. Bipartite os peroneum. Alignment is anatomic. No erosions. Joint spaces are maintained. Small enthesopathic spur is present at the plantar fascial origin on the calcaneus. Mild soft tissue swelling in the hindfoot medially. XR/XR foot RT min 3V IMPRESSION: 1. No acute fracture or malalignment in the right ankle and foot. 2. Mild soft tissue swelling at the ankle and hindfoot.
--- NOTE | 2023-02-07 11:40 | ED.GENADULT ---
HPI - General Adult General Chief complaint: Skin/Abscess/Foreign Body Stated complaint: Needs IV antibiotic Time Seen by Provider: 02/07/23 12:35 Source: patient and RN notes reviewed Mode of arrival: ambulatory Limitations: no limitations History of Present Illness HPI narrative: This is a [id number]-male, hx of substance abuse, presenting to the emergency department with complaints of ? Abscess on left arm, and right foot pain. Patient reports that he is an IV drug user and states that he has injected into his left arm. He has noticed increased swelling to the areas in he injected. Patient also reports that he has had pain in his right ankle and right foot for the last 2 weeks. He states that he accidentally twisted his right ankle and foot 2 weeks ago and has had pain since. Has been able to walk on his foot without difficulty. Patient was seen at a clinic yesterday and was placed on doxycycline and Keflex. Relieving factors: none Exacerbating factors: none Associated symptoms: denies other symptoms Treatments prior to arrival: none Related Data Home Medications Medication Instructions Recorded Confirmed bupropion HCl 150 mg 24 hr tablet, 150 mg PO QAM 12/01/22 12/01/22 extended release dulaglutide 3 mg/0.5 mL 3 mg subcut QWEEK 12/01/22 12/01/22 [facility] Previous Rx's Medication Instructions Recorded cephalexin 250 mg capsule 250 mg PO QID 7 days #28 caps 02/07/23 doxycycline hyclate 100 mg capsule 100 mg PO BID 7 days #14 caps 02/07/23 ibuprofen 600 mg tablet 600 mg PO Q6H PRN pain #30 tabs 02/07/23 Allergies Allergy/AdvReac Type Severity Reaction Status Date / Time No Known Allergies Allergy Verified 02/07/23 11:43 [No Known Allergies*] Review of Systems Review of Systems: Yes all other systems are reviewed and are negative Constitutional: Constitutional: Reports as per [facility] Past Medical History Attestation statement: The following information was validated with the patient. Medical History Depression Social History Social History Household Members: Significant Other and Other Household Members Other:: Greg León Housing: Apartment Do you presently have visiting nurse or other home services: No Patient Tobacco Use Status: Former Tobacco user Tobacco use type: Cigarette Smoked in Last 30 Days: No e-Cigarette/Vaping Use: Former Use Second Hand Smoke Exposure: No Use of substances other than those prescribed or required for medical reasons: No Substance Use Type: Crack/Cocaine, Heroin, Marijuana and Caffiene Advance Directives: No Advance Directives Information Provided: Yes service: No Sexual orientation: Lesbian/Lamb/Homosexual Physical Exam ED Vital Signs: Vital Signs - 24 hr 02/07/23 11:41 02/07/23 17:16 Temperature 96.9 F Pulse Rate 60 75 Respiratory Rate 18 18 Blood Pressure 103/47 L 113/73 Pulse Oximetry 100 100 Oxygen Delivery Method Room Air Room Air BMI result Body Mass Index 25.1 Const General: cooperative, comfortable and no acute distress Orientation/consciousness: patient oriented x3 Limitations: no limitations HENMT Head: Yes normal to inspection, Yes normocephalic and Yes atraumatic Ears: hearing grossly normal bilaterally General nose exam: Normal external nose present Face and sinus: Yes normal facial exam Mouth: Normal oral and palatal mucosa present, oropharynx normal and moist mucous membranes Throat: Yes posterior oropharynx normal Eyes General: appearance normal, both eyes and all related structures Eyelids: Yes eyelids normal Conjunctivae: conjunctivae normal Sclerae: sclerae normal Pupils: Equal, round and reactive pupils present EOM: EOMs intact bilaterally Neck Neck: Yes normal visual inspection, Yes full ROM and Yes no lymphadenopathy Lymphatic: no lymphadenopathy noted Chest Chest palpation & inspection: normal inspection of the chest Resp Effort & Inspection: normal respiratory effort and able to speak in complete sentences Auscultation: clear to auscultation bilaterally, no crackles, no rales, no rhonchi and no wheezes Cardio Rate: regular rate Rhythm: regular rhythm Heart sounds: S1 normal heart sound present and S2 normal heart sound present GI Inspection: Yes normal to inspection Skin General skin exam: no rashes or lesions noted Trauma: no lacerations or abrasions Wounds: no wounds Neuro General: patient oriented x3 and moves all extremities Cranial nerves: Yes Equal, round and reactive pupils present Extrem Other: Left antecubital fossa with 2cm hardened mobile mass with no surrounding erythema or edema. left posterior forearm with 3cm minimal fluctuance area of erythema and warmth. no profound erythema or warmth noted surrounding region, mildly TTP. Full ROM of the shoulder Right ankle: no medial or malleloli TTP, diffuse edema noted, no erythema. Able to dorsi and plantar flex however limited secondary to pain. DP pulse 2+. General: Yes normal to inspection Right upper extremity: normal to inspection Left upper extremity: normal to inspection Right lower extremity: normal to inspection Left lower extremity: normal to inspection Course Course Course Narrative: RME performed by Rody Ridley PA-C. Patient is a 48 year old assigned male at presenting to the emergency department with a possible abscess on his left upper extremity and complaining of generalized right shoulder pain. Patient placed back in the waiting room pending room availability. Medical Decision Making Medical Decision Making MDM Narrative: 48 y/o M presenting to the ER with complaiants of abscess on left arm and right foot and ankle pain after inversion incident 2 weeks ago. Hx of IVDA, left arm with cellulitic area, would benefit from doxy and keflex. Pt was seen at another medical office yesterday and started these medications. Advised to continue taking these. Right ankle and foot xrays revealing no acute fracture. Pt given chuy wrap and return precautions. Pt stable for d/c. Differential Diagnosis Differential Diagnoses: The differential diagnosis associated with the presentation includes cellulitis, abscess, sprain, strain, fracture Radiology Impression Discussion of test interpretation with radiology: I have reviewed the radiologist's reading. Radiologist Impression: COMPARISON: None TECHNIQUE: AP, lateral, and mortise views of the right ankle and AP, lateral, and oblique views of the right foot. FINDINGS: RIGHT ANKLE: No fracture. Alignment is anatomic. Ankle mortise is symmetric. Joint spaces are maintained. No ankle joint effusion. Mild soft tissue swelling at the ankle and hindfoot. RIGHT FOOT: No fracture. Bipartite os peroneum. Alignment is anatomic. No erosions. Joint spaces are maintained. Small enthesopathic spur is present at the plantar fascial origin on the calcaneus. Mild soft tissue swelling in the hindfoot medially. XR/XR foot RT min 3V IMPRESSION: 1. No acute fracture or malalignment in the right ankle and foot. 2. Mild soft tissue swelling at the ankle and hindfoot. Discharge Plan Discharge Clinical Impression: Cellulitis, Ankle sprain Patient Disposition: Home, Self-Care Instructions: Cellulitis (ED), Warm Compress or Soak (ED) Additional Instructions: You have a developing abscess on the left arm. Please apply warm compresses to the area. Take prescribed antibiotics as directed. (You had these filled yesterday, continue taking these!) Finish the entire course even if your feeling better. Your x-rays of your right ankle and foot did not show any broken bones. Please use Chuy wrap, ice and elevate the area. You may take ibuprofen or Tylenol as needed for pain. If any new or worsening symptoms occur including but not limited to fevers, chills, worsening redness, swelling, please return for re-evaluation. Prescriptions: New cephalexin 250 mg capsule 250 mg PO QID 7 Days Qty: 28 0RF doxycycline hyclate 100 mg capsule 100 mg PO BID 7 Days Qty: 14 0RF ibuprofen 600 mg tablet 600 mg PO Q6H PRN (Reason: pain) Qty: 30 0RF No Action bupropion HCl 150 mg tablet extended release 24 hr 150 mg PO QAM Trulicity 3 mg/0.5 mL pen injector 3 mg subcut QWEEK Interventions: ED Discharge Assessment Last Done: 02/07/23 17:18 Discharge Date/Time: 02/07/23 17:20
[2023-02-07 11:41] VITALS: BP 103/47; PULSE 60; RESP 18; TEMP 36.1; O2SAT 100; BMI 25.1
[2023-02-07 17:16] VITALS: BP 113/73; PULSE 75; RESP 18; O2SAT 100
== END 2023-02-07 17:20 | disposition home or self-care (01) ==
PROVIDERS: Emergency Provider Student in an Organized Health Care Education/Training Program
DX: L03.114 Cellulitis of left upper limb (principal); F19.10 Other psychoactive substance abuse, uncomplicated; S93.401A Sprain of unspecified ligament of right ankle, initial encounter; X50.1XXA Overexertion from prolonged static or awkward postures, initial encounter; Y93.9 Activity, unspecified; Y92.9 Unspecified place or not applicable; Y99.9 Unspecified external cause status; F14.10 Cocaine abuse, uncomplicated; Z87.891 Personal history of nicotine dependence
CPT/HCPCS: 73610; 73630; 99283; 99284

== ENCOUNTER 2023-06-29 14:33 | Outpatient (REF) | payer MEDICAID, SELFPAY ==
[2023-06-29 16:17] LABS: MANUAL DIFF FLAG NO
[2023-06-29 16:28] LABS: Basophils Percent Auto 0.5 % (0-2); Hematocrit 40.2 % (42.0-52.0); Hemoglobin 13.3 g/dl (14.0-18.0); Imm Gran Abs Auto 0.02 X10*3/uL (0.00-0.03); Imm Gran Pct Auto 0.5 % (0.0-0.4); Lymphocytes Absolute Auto 1.3 X10*3/uL (1.2-4.9); Lymphocytes Percent Auto 33.3 % (20-40); Mean Corpuscular HGB Conc 33.1 g/dl (31.0-36.0); Mean Corpuscular Hemoglobin 30.2 pg (27.0-33.0); Mean Corpuscular Volume 91.2 fL (80.0-98.0); Mean Platelet Volume 9.1 fL (9.4-12.4); Monocytes Absolute Auto 0.5 X10*3/uL (0.1-1.2); Monocytes Percent Auto 13.1 % (2-11); Neutrophils Percent Auto 51.6 % (45-73); Platelet Count 243 X10*3/uL (160-400); Red Blood Count 4.41 X10*6/uL (4.60-5.80); Red Cell Distribution Width 12.3 % (11.0-16.0); White Blood Count 3.8 X10*3/uL (4.8-10.8)
[2023-06-29 16:38] LABS: Estimated Average Glucose 126 mg/dL
[2023-06-29 16:39] LABS: Alanine Aminotransferase 41 U/L (0-40); Albumin Level 3.1 g/dL (3.5-5.0); Alkaline Phosphatase 218 U/L (39-117); Anion Gap 10 (12-20); Aspartate Amino Transferase 50 U/L (5-37); Bilirubin Total 0.3 mg/dL (0.0-1.0); Blood Urea Nitrogen 17 mg/dL (9-16); Carbon Dioxide 32 mmol/L (22-29); Chloride 103 mmol/L (96-108); Estimated Glomerular Filt Rate > 60; Glucose Random 107 mg/dL (60-115); Potassium 4.6 mmol/L (3.3-5.1); Sodium 140 mmol/L (135-145); Total Protein 7.2 g/dL (6.5-8.0)
[2023-06-30 04:23] LABS: HIV AB/AG Nonreactive (Nonreactive); HIV Num 1 0.04 S/CO (0.00-0.99); ~HepC Num1 14.48 S/CO (0.00-0.79); ~Hepatitis C Antibody Reactive (Nonreactive)
[2023-07-01 18:54] LABS: HCV Log PCR 6.27 Log IU/mL (NOT DETECTED); HepC Viral Load 1880000 IU/mL (NOT DETECTED)
== END 2023-06-29 14:34 | disposition home or self-care (01) ==
LOC: HO.HHCL 14:33
PROVIDERS: Visit Provider General Practice
DX: Z11.4 Encounter for screening for human immunodeficiency virus [HIV] (principal); B18.2 Chronic viral hepatitis C; E11.9 Type 2 diabetes mellitus without complications
CPT/HCPCS: 36415; 80053; 83036; 85025; 86803; 87389; 87522

== ENCOUNTER 2023-07-04 09:54 | Outpatient (REF) | payer MEDICAID, SELFPAY ==
--- NOTE | ~2023-07-04 | US_ITS ---
EXAMINATION: US ABDOMEN COMPLETE CLINICAL INFORMATION: Hepatitis C treated in 2019. Assess for cirrhosis, HCC, splenomegaly. COMPARISON: None available. TECHNIQUE: Real-time imaging of the abdominal viscera. Technically difficult study secondary to bowel gas. FINDINGS: PANCREAS: The pancreatic body and tail are obscured secondary to shadowing from overlying bowel gas. The pancreatic head is within normal limits. ABDOMINAL AORTA: Visualized portions are normal. INFERIOR VENA CAVA: Visualized portions are normal. LIVER: Liver is normal in size, echogenicity and morphology. Mild intrahepatic biliary ductal dilatation. GALLBLADDER: Mild diffuse gallbladder wall thickening with intramural edema. Internal echogenic bile. No shadowing stones. No significant pericholecystic free fluid. Negative Davies's sign. COMMON BILE DUCT: Dilated measuring 1 cm in diameter. RIGHT KIDNEY: Normal. No hydronephrosis. No renal calculi or focal parenchymal lesions. The kidney measures 10.1 cm in maximum dimension. LEFT KIDNEY: Normal. No hydronephrosis. No renal calculi or focal parenchymal lesions. The kidney measures 9.9 cm in maximum dimension. SPLEEN: The spleen measures 13.1 cm in maximum dimension. Engorged vasculature at the splenic hilum. FREE FLUID: None. US/US abdomen complete IMPRESSION: 1. The common bile duct is dilated and there is mild intrahepatic biliary ductal dilatation. Recommend correlation with liver/biliary function tests and further evaluation with MRCP. 2. Mild diffuse gallbladder wall thickening with intramural edema. This is a nonspecific finding that could be present in several etiologies including cholecystitis, secondary thickening in the context of hepatocellular disease and ascites, among others. Recommend clinical correlation. 3. Incompletely characterize engorged vasculature in the splenic hilum, potentially associated with varices. This could be further characterize at the moment of reevaluation of the biliary tree. The report will be called to the ordering clinician by a [facility] Specialist.
== END 2023-07-04 09:55 | disposition home or self-care (01) ==
LOC: HO.HMGCX 09:54
PROVIDERS: Visit Provider General Practice
DX: B18.2 Chronic viral hepatitis C (principal)
CPT/HCPCS: 76700

== ENCOUNTER 2023-08-09 08:42 | Outpatient (REF) | payer MEDICAID, SELFPAY ==
--- NOTE | ~2023-08-09 | MR_ITS ---
EXAMINATION: MR ABDOMEN WITHOUT CONTRAST MR CHOLANGIOPANCREATOGRAPHY CLINICAL INFORMATION: Hepatitis C treated in 2019, dilated common bile duct COMPARISON: Ultrasound examination of the abdomen on 07/06/2023 TECHNIQUE: Examination was performed in a high field strength MRI scanner. Multiplanar multisequence MR imaging of the abdomen was performed without IV contrast enhancement. MR cholangiopancreatography was performed with heavily T2 weighted sequences. 3-dimensional reconstruction of image data was performed. This was performed under concurrent direct supervision and monitoring by radiologist. Maximum intensity projection images were constructed. FINDINGS: MR CHOLANGIOPANCREATOGRAPHY: Normal gallbladder without filling defects. Cystic duct is unremarkable. Bilateral intra hepatic bile ducts, common hepatic duct and common bile duct are dilated in size without filling defects. Common bile duct is dilated up to 0.8 cm in diameter. Pancreatic duct is diffusely dilated, measuring up to 0.5 cm in diameter in the pancreatic body, tapers to 0.4 cm in pancreatic uncinate process. LIVER: The liver shows no focal lesion. PANCREAS: No focal pancreatic lesion with abnormal signal can be seen. SPLEEN: Spleen is normal in size without focal lesion. ADRENAL: Bilateral adrenal glands are normal in shape and size. KIDNEYS: Bilateral kidneys are normal in size without focal lesion. MR/MR MRCP IMPRESSION: 1. Dilated intrahepatic bile ducts, common hepatic duct and common bile duct without filling defects. 2. Dilated pancreatic duct without focal lesion. 3. Findings could be due to duodenal papillary obstruction or stenosis or sphincter of Oddi dyskinesia. If clinically indicated, further evaluation with ERCP is recommended to exclude duodenal papillary tumor.
== END 2023-08-09 08:43 | disposition home or self-care (01) ==
LOC: HO.MRI 08:42
PROVIDERS: Visit Provider General Practice
DX: K83.8 Other specified diseases of biliary tract (principal)
CPT/HCPCS: 74181

== ENCOUNTER 2023-10-02 15:13 | Outpatient (REF) | payer MEDICAID, SELFPAY ==
[2023-10-02 16:10] LABS: MANUAL DIFF FLAG NO
[2023-10-02 16:18] LABS: Basophils Percent Auto 0.5 % (0-2); Eosinophils Percent Auto 0.5 % (0-4); Hematocrit 37.4 % (42.0-52.0); Hemoglobin 12.7 g/dl (14.0-18.0); Lymphocytes Absolute Auto 1.2 X10*3/uL (1.2-4.9); Lymphocytes Percent Auto 31.8 % (20-40); Mean Corpuscular Hemoglobin 31.1 pg (27.0-33.0); Mean Corpuscular Volume 91.7 fL (80.0-98.0); Mean Platelet Volume 9.9 fL (9.4-12.4); Monocytes Absolute Auto 0.5 X10*3/uL (0.1-1.2); Monocytes Percent Auto 14.1 % (2-11); Neutrophils Percent Auto 53.1 % (45-73); Platelet Count 197 X10*3/uL (160-400); Red Blood Count 4.08 X10*6/uL (4.60-5.80); Red Cell Distribution Width 12.3 % (11.0-16.0); White Blood Count 3.7 X10*3/uL (4.8-10.8)
[2023-10-02 16:23] LABS: Estimated Average Glucose 128 mg/dL; Hemoglobin A1c % 6.1 % (<6.0)
[2023-10-02 16:49] LABS: Alanine Aminotransferase 108 U/L (0-40); Albumin Level 3.3 g/dL (3.5-5.0); Alkaline Phosphatase 153 U/L (39-117); Anion Gap 11 (12-20); Aspartate Amino Transferase 132 U/L (5-37); Bilirubin Total 0.4 mg/dL (0.0-1.0); Blood Urea Nitrogen 20 mg/dL (9-16); C Reactive Protein < 0.10 mg/dL (< or = 0.50); Carbon Dioxide 28 mmol/L (22-29); Chloride 104 mmol/L (96-108); Estimated Glomerular Filt Rate > 60; Glucose Random 133 mg/dL (60-115); Iron 103 mcg/dL (45-160); Percent Iron Saturation 31 % (15-50); Potassium 4.4 mmol/L (3.3-5.1); Sodium 139 mmol/L (135-145); Total Iron Binding Capacity 335 mcg/dL (228-428); Total Protein 7.4 g/dL (6.5-8.0); Unsaturated Iron Binding 232 ug/dL
[2023-10-02 16:57] LABS: Erythrocyte Sedimentation Rate 25 MM/HR (0-15)
[2023-10-02 16:58] LABS: Ferritin 489 ng/mL (20-250)
[2023-10-03 07:24] LABS: HIV AB/AG Nonreactive (Nonreactive); HIV Num 1 0.04 S/CO (0.00-0.99)
[2023-10-03 20:43] LABS: Immunoglobulin A 549 mg/dL (47-310); Transglutaminase IgA <1.0 U/mL
== END 2023-10-02 15:14 | disposition home or self-care (01) ==
LOC: HO.HHCL 15:13
PROVIDERS: Visit Provider Nurse Practitioner Family
DX: R10.84 Generalized abdominal pain (principal); B18.2 Chronic viral hepatitis C; D64.9 Anemia, unspecified; E11.9 Type 2 diabetes mellitus without complications; Z79.4 Long term (current) use of insulin
CPT/HCPCS: 36415; 80053; 82728; 82784; 83036; 83540; 85025; 85652; 86140; 86364; 87389

== ENCOUNTER 2023-11-29 06:57 | Outpatient (REF) | payer MEDICAID, SELFPAY | END 2023-11-29 06:58 | disposition home or self-care (01) | LOC: HO.HOSX 06:57 | PROVIDERS: Visit Provider Orthopaedic Surgery | DX: Z13.89 Encounter for screening for other disorder (principal) ==

== ENCOUNTER 2024-01-08 10:15 | Outpatient (REF) | payer MEDICAID, SELFPAY | END 2024-01-08 10:16 | disposition home or self-care (01) | LOC: HO.HOSX 10:15 | DX: Z13.89 Encounter for screening for other disorder (principal) ==